=== PATIENT | male | born 1985 | race Native Hawaiian/Other Pacific Islander ===

== ENCOUNTER 2017-11-14 06:05 | Day surgery (SDC) | payer OTHER ==
[2017-11-14] MEDS ORDERED: LACTATED RINGERS 1,000 ML IV ONE ×3 (06:46→08:29)
[2017-11-14] MEDS ORDERED: ceFAZolin 2 GM/50 ML 2 GM/50 ML BAG IV ONE (06:46)
[2017-11-14] MEDS ORDERED: LIDOCAINE 1%-EPI 1:100000 30 ML MDV ONE (07:24)
[2017-11-14] MEDS ORDERED: BUPIVACAINE 0.5% PF 30 ML VIAL ONE (07:24)
[2017-11-14] MEDS ORDERED: LIDOCAINE 1%-EPI 1:100000 30 ML MDV SUBQ ONE (08:13)
[2017-11-14] MEDS ORDERED: BUPIVACAINE 0.5% PF 30 ML VIAL INFIL ONE (08:13)
[2017-11-14] MEDS ORDERED: fentaNYL 100 MCG/2 ML VIAL IVP ONE (08:30)
[2017-11-14] MEDS ORDERED: KETOROLAC 30 MG/ML VIAL IVP ONE (08:30)
[2017-11-14] MEDS ORDERED: ONDANSETRON 4 MG/2 ML VIAL IVP ONE (08:30)
[2017-11-14] MEDS ORDERED: MIDAZOLAM 2 MG/2 ML VIAL IVP ONE (08:30)
[2017-11-14] MEDS ORDERED: PROPOFOL 200 MG/20 ML VIAL IVP ONE (08:30)
[2017-11-14 08:59] VITALS: BP 121/70
--- NOTE | 2017-11-14 10:40 | OPERATIVE REPORT ---
DATE OF SERVICE: 11/14/2017 Physician: Tyshawn Diaz MD PREOPERATIVE DIAGNOSIS: Symptomatic umbilical hernia. POSTOPERATIVE DIAGNOSIS: Symptomatic umbilical hernia. PROCEDURE PERFORMED: Open repair of symptomatic umbilical hernia. ANESTHESIA: Local plus monitored anesthesia care. SURGEON: Tyshawn Diaz MD ESTIMATED BLOOD LOSS: Minimal. COMPLICATIONS: None. DRAINS: None. FINDINGS: A 5 mm umbilical fascial defect was present with omentum present within the hernia sac. INDICATIONS FOR PROCEDURE: This is a 31-year-old gentleman with a painful umbilical bulge. Examination revealed a small reducible umbilical hernia. He was advised to undergo repair with possible mesh reconstruction. TECHNIQUE: After informed consent, the patient was taken to the operating room, where he was sedated and monitored. Preoperative preparation included application of sequential calf compression boots and administration 2 grams cefazolin intravenously within an hour of the incision. His periumbilical region was prepared with ChloraPrep solution and draped in the usual sterile fashion. A 50:50 combination of 1% lidocaine with epinephrine and 0.5% Marcaine plain was used to provide a field block. A total of 30 mL of the mixture was used. A curvilinear infraumbilical incision was made approximately 3 cm in length and carried down through the subcutaneous tissues. Hemostasis was achieved with electrocautery. The umbilical dermis was dissected off the hernia sac, which was mobilized circumferentially. The anterior fascia was mobilized circumferentially around the neck of the hernia sac, which was excised with electrocautery and discarded. Hernia contents, which were omentum, were reduced, and the fascial defect, which was quite small, measuring 5 mm or less, was reapproximated with two interrupted 0 Ethibond sutures, reapproximating the fascial edges transversely. After hemostasis was assured, wound closure was accomplished in layers using interrupted 2-0 Vicryl to reapproximate the umbilical dermis to the anterior fascia, with similar suture to reapproximate the deep subcutaneous tissues, followed by continuous 3-0 Vicryl for the superficial subcutaneous tissues, followed by a 4-0 Monocryl subcuticular skin closure, followed by Dermabond. The procedure was terminated. The patient was transferred out of the operating room in satisfactory condition. Sponge and needle counts correct x2. No drains were used. TD: 11/14/2017 08:38
== END 2017-11-14 06:06 | disposition home or self-care (01) ==
LOC: SDS 06:05
PROVIDERS: ATTEND Internal Medicine Gastroenterology
PROC: 0WQF0ZZ Repair Abdominal Wall, Open Approach (ICD-10-PCS; principal; 2017-11-14 07:30)
DX: K42.9 Umbilical hernia without obstruction or gangrene (principal)
CPT/HCPCS: 49585; J0690; J7120

== ENCOUNTER 2018-02-28 17:01 | Emergency (ER) | payer OTHER ==
[2018-02-28 17:20] VITALS: BP 151/94
[2018-02-28] MEDS ORDERED: IBUPROFEN 800 MG TABLET PO STA (17:28)
--- NOTE | 2018-02-28 17:32 | ED Physician Documentation ---
PD HPI URI - History obtained from History obtained from: Patient - History of Present Illness Timing - onset: Yesterday Timing details: Still present Associated symptoms: Fever, Chills, Ear pain, Nasal congestion, Sore throat, Dry cough - Stated complaint Stated Complaint: FLU SYMPTOMS - Chief complaint Chief Complaint: Fever - Additional information Additional information: The patient is a 32-year-old male who presents with sore throat, fever, chills, congestion, and nonproductive cough, that started yesterday and became worse today. He measured his fever at 101.6 degrees today. He also complains of right earache. He denies abdominal pain, vomiting, or diarrhea. No other family members are currently ill. (Poncho Aguero) The patient is a 32-year-old male who presents with sore throat, fever, chills, congestion, and nonproductive cough, that started yesterday and became worse today. He measured his fever at 101.6 degrees today. He also complains of right earache. He denies abdominal pain, vomiting, or diarrhea. No other family members are currently ill. (Mark Tomlin) Review of Systems Constitutional: reports: Fever, Chills, Myalgias Eyes: denies: Irritation Ears: reports: Ear pain (right ear) Nose: reports: Congestion Throat: reports: Sore throat Cardiac: denies: Chest pain / pressure Respiratory: reports: Cough. denies: Dyspnea GI: reports: Nausea (mild). denies: Abdominal Pain, Vomiting, Diarrhea : denies: Dysuria Skin: denies: Rash Musculoskeletal: denies: Neck pain, Back pain Neurologic: denies: Headache PD PAST MEDICAL HISTORY - Past Medical History Past Medical History: No Cardiovascular: None Respiratory: None Endocrine/Autoimmune: None GI: None : None HEENT: None Psych: None Musculoskeletal: None Derm: None - Past Surgical History Past Surgical History: Yes General: Other Ortho: Other - Social History Does the pt smoke?: No Smoking Status: Never smoker Does the pt drink ETOH?: Yes Does the pt have substance abuse?: No - Immunizations Immunizations are current?: Yes - Present Medications Home Medications: Ambulatory Orders Medication Instructions Recorded Confirmed No Known Home Medications 02/28/18 02/28/18 - Allergies Allergies/Adverse Reactions: Allergies Allergy/AdvReac Type Severity Reaction Status Date / Time No Known Drug Allergies Allergy Verified 02/28/18 17:20 PD ED PE NORMAL - Vitals Vital signs reviewed: Yes (febrile) - General General: Alert and oriented X 3, Well developed/nourished - HEENT HEENT: Atraumatic, EOMI, Moist mucous membranes, Other (Oropharynx erythematous, without exudates; right tympanic membrane is injected appearing, left tympanic membrane clear.) - Neck Neck: Supple, no meningeal sign, Other (Enlarged anterior cervical nodes bilaterally.) - Cardiac Cardiac: RRR, No murmur - Respiratory Respiratory: No respiratory distress, Clear bilaterally - Abdomen Abdomen: Soft, Non tender - Back Back: No CVA TTP - Derm Derm: No rash - Extremities Extremities: No edema, No calf tenderness / cord - Neuro Neuro: Alert and oriented X 3, No motor deficit, Normal speech - Vitals Vitals: Vital Signs - 24 hr 02/28/18 02/28/18 17:13 18:13 Temperature 38.7 C H 38.1 C H Heart Rate 88 Respiratory 18 Rate Blood Pressure 151/94 H O2 Saturation 99 Oxygen O2 Source Room air - Labs Labs: Microbiology 02/28/18 17:30 Group A Strep Throat Culture - Final Throat MIXED OROPHARYNGEAL BOO PRESENT. NO BETA STREP PRESENT IN CULTURE. Laboratory Tests 02/28/18 02/28/18 17:26 17:30 Influenza A (Rapid) Negative Influenza B (Rapid) Negative Group A Strep Rapid Negative PD MEDICAL DECISION MAKING - ED course Complexity details: reviewed results, re-evaluated patient, considered differential, d/w patient - ED course ED course: The patient's presentation is most consistent with viral upper respiratory infection. Strep screen is negative, as is influenza swab. Treatment in the emergency department included administration of ibuprofen 800 mg orally. I discussed with him the expected course of illness, symptomatic treatment and outpatient follow-up, as well as potentially worrisome signs or symptoms that should prompt reevaluation in the emergency department. (Mark Tomlin) Departure - Departure Disposition: 01 Home, Self Care Clinical Impression: Viral upper respiratory infection Condition: Stable Instructions: ED URI Viral Follow-Up: PHUONG CURRIE [Primary Care Provider] - Comments: Your symptoms are most consistent with a viral upper respiratory infection. Antibiotics are not clinically indicated for this type of viral infection. Treatment should be geared toward managing symptoms: Drink plenty of fluids. Use Tylenol or ibuprofen as needed for fever or discomfort. Wash your hands frequently, and cover your cough. Follow up with your primary physician, or return to the emergency department, if not improving within 1-2 weeks. Return to the emergency department if you develop increasing difficulty breathing, or otherwise worsening symptoms. Forms: Activity restrictions Discharge Date/Time: 02/28/18 18:13
== END 2018-02-28 18:13 | disposition home or self-care (01) ==
LOC: ED 17:01
DX: J06.9 Acute upper respiratory infection, unspecified (principal)
CPT/HCPCS: 87070; 87275; 87276; 87430; 99283; A9270